=== PATIENT | male | born 1995 ===

== ENCOUNTER 2022-01-28 18:32 | Emergency (ER) | payer SELFPAY ==
[~2022-01-28] VITALS: Ht 175.3 cm; Wt 72.7 kg
[2022-01-28 18:47] VITALS: TEMP 97.2
[2022-01-28] MEDS ORDERED: NORCO 325 MG-51 TAB PO (20:26)
[2022-01-28 23:00] VITALS: BP 114/78; PULSE 76
== END 2022-01-29 01:16 | disposition home or self-care (01) ==
LOC: COL.ER 18:32
DX: S82.891A Other fracture of right lower leg, initial encounter for closed fracture (principal); Z28.310 Unvaccinated for COVID-19; V28.4XXA Motorcycle driver injured in noncollision transport accident in traffic accident, initial encounter; Y92.410 Unspecified street and highway as the place of occurrence of the external cause
CPT/HCPCS: L4386